=== PATIENT | male | born 1975 | race Caucasian/White ===

== ENCOUNTER 2018-06-13 10:46 | Emergency (ER) | payer SELFPAY ==
[2018-06-13] MEDS ORDERED: HYDROcodone/Acetaminophen 5/325 mg Tablet ONE (11:41)
--- NOTE | 2018-06-13 11:52 | RAD ---
RIGHT SHOULDER THREE VIEWS: HISTORY: Injury. COMPARISON: None. FINDINGS: There is no acute fracture or malalignment. There is mild widening of the acromioclavicular distance . The coracoclavicular distance is also mildly widened. The visualized ribs are unremarkable. IMPRESSION: Mild widening of the acromioclavicular and coracoclavicular distances, which can be seen with acromio clavicular sprain. POS: ANDREW
--- NOTE | 2018-06-13 11:57 | CT ---
NONCONTRAST CT CERVICAL SPINE: 06/13/2018 HISTORY: Neck injury. 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 TECHNIQUE: Contiguous axial CT images are obtained through the cervical spine, from the skull base to the T1-T2 level. Sagittal and coronal reformatted images are provided. FINDINGS: There is mild scattered posterior osteophyte formation within the cervical spine. Degenerative somers es are greatest at the C5-C6 and C6-C7 levels. There is encroachment on the anterior aspect of the s myles cord, at the C6-C7 level, due to prominent posterior osteophyte formation, as well as disk bulg e. Similar findings, but to a lesser extent, are present at the C5-C6 level. Vertebral body heights are within normal limits. No fracture or subluxation is present. Prevertebral soft tissues are within normal limits. IMPRESSION: Degenerative changes in the cervical spine, but no fracture or subluxation is identified. POS: SANDRA
== END 2018-06-13 11:52 | disposition home or self-care (01) ==
LOC: SCSER 10:46
DX: S43.101A Unspecified dislocation of right acromioclavicular joint, initial encounter (principal); S16.1XXA Strain of muscle, fascia and tendon at neck level, initial encounter; M50.30 Other cervical disc degeneration, unspecified cervical region; F17.210 Nicotine dependence, cigarettes, uncomplicated; V04.99XA Pedestrian with other conveyance injured in collision with heavy transport vehicle or bus, unspecified whether traffic or nontraffic accident, initial encounter
CPT/HCPCS: 72125